=== PATIENT | female | born 1995 | race Caucasian/White ===

== ENCOUNTER → 2017-08-02 | Outpatient (CLI) | payer BC, OTHER ==
[~2017-08-02] MED LIST: BACTRIM DS 8001 TA1 PO; CLARITIN-D 12 H1 TAB PO; DIFLUCAN150 MG PO; LIDOCAINE VISC100 ML MM; NKHM; PRELONE15 MG/5 ML PO; REGLAN10 M1 PO; VICODIN ES 7501 TAB PO; ZITHROMAX Z PA250 MG PO; ZITHROMAX200 MG/51 PO
== END | disposition home or self-care (01) ==
LOC: US 01:52
DX: N92.0 Excessive and frequent menstruation with regular cycle (principal); R10.30 Lower abdominal pain, unspecified

== ENCOUNTER → 2017-11-13 | Outpatient (CLI) | payer BC, OTHER | END | disposition home or self-care (01) | LOC: NM 01:41 | DX: R11.0 Nausea (principal); R14.0 Abdominal distension (gaseous); R63.0 Anorexia; R12 Heartburn ==

== ENCOUNTER → 2018-01-10 | Day surgery (SDC) | payer OTHER ==
[~2018-01-10] VITALS: Ht 170.1 cm; Wt 65.8 kg
[~2018-01-10] MED LIST changes: +OMEPRAZOLE20 M2 PO
--- NOTE | ~2018-01-10 | O ---
[place], [place] OPERATIVE NOTE NAME: [id number] UNIT #: [id number] ROOM: DOCTOR: LOLLY CRUZ,CARLIE BIRTHDATE: [birth year] DOS: 01/10/2018 INDICATIONS: This is a 23-year-old patient who was presented with chief complaint of epigastric distress, dyspepsia, undergoing investigation. PAST MEDICAL AND SURGICAL HISTORY: Essentially noncontributory. PROCEDURE: Today's procedure part of investigation is panendoscopy plus biopsy. PREMEDICATION: Versed and Diprivan. SCOPE: Olympus forward-viewing gastroscope Q10 video. REPORT: After putting the patient in left lateral position and application of lubricant to the scope, the scope was introduced. Thereafter, under direct visualization, advanced through the length of the esophagus without difficulty. Some evidence of reflux esophagitis noticed. Gastritis was seen as we entered the gastric pouch. This is mild degree, antral biopsy was obtained for H. pylori. Duodenal bulb, second and third part within normal limits. The patient extubated, tolerated the procedure well. IMPRESSION: Mild gastritis, status post biopsy for H. pylori. Evidence of distal esophagitis secondary to reflux. PLAN AND DISCUSSION: Omeprazole 20 mg 1 daily and clinical reassessment. Continuation with Reglan 5 mg daily since it has helped with symptomatology and antireflux measures with elevation of the head of the bed 6-inch all time. Abstinence from solid food ingestion 5 hours prior to retiring. CARLIE AMBROCIO MD CM:OPRECORD:OPERATIVE NOTE [id number] CARLIE AMBROCIO MD 01/10/18 1617 interface
[2018-01-10 12:00] VITALS: BP 99/70
[2018-01-10 12:53] VITALS: BP 105/61
[2018-01-10 13:08] VITALS: BP 102/56
[2018-01-10 13:23] VITALS: BP 104/55
== END | disposition home or self-care (01) ==
LOC: SDC 12-12 12:30
DX: K21.0 Gastro-esophageal reflux disease with esophagitis (principal); K29.70 Gastritis, unspecified, without bleeding; K29.50 Unspecified chronic gastritis without bleeding; D64.9 Anemia, unspecified; Z98.890 Other specified postprocedural states

== ENCOUNTER 2018-08-05 03:42 | Emergency (ER) | payer OTHER ==
[~2018-08-05] VITALS: Ht 172.7 cm; Wt 68.0 kg
[2018-08-05] MEDS ORDERED: METOCLOPRAMIDE H5 M1 PO (03:54)
== END 2018-08-05 05:29 | disposition home or self-care (01) ==
LOC: ED 03:42
DX: S00.03XA Contusion of scalp, initial encounter (principal); H72.91 Unspecified perforation of tympanic membrane, right ear; Z79.899 Other long term (current) drug therapy; Y04.8XXA Assault by other bodily force, initial encounter; Y93.89 Activity, other specified; Y92.89 Other specified places as the place of occurrence of the external cause; Y99.8 Other external cause status

== ENCOUNTER → 2019-08-05 | Outpatient (CLI) | payer BC ==
[~2019-08-05] MED LIST changes: +METOCLOPRAMIDE H5 M1 PO
[2019-08-05 10:57] LABS: BASO % 0.5 % (0.0-1.0); EOS # 0.1 10*3/uL (0.0-0.4); EOS % 2.1 % (1.0-4.0); HEMATOCRIT 41.9 % (37.0-47.0); HEMOGLOBIN 14.2 g/dl (12.0-16.0); LYMPH # 1.4 10*3/uL (1.3-4.4); MEAN CELL VOLUME 92.9 fl (81.0-99.0); MEAN CORPUSCULAR HGB 31.5 pg (27.0-31.0); MEAN CORPUSCULAR HGB CONC 33.9 g/dl (33.0-37.0); MONO # 0.4 10*3/uL (0.1-1.0); MONO % 9.5 % (3.0-9.0); NEUT # 2.3 10*3/uL (2.3-7.9); NEUT % 53.7 % (47.0-73.0); PLATELET COUNT AUTOMATED 190 10*3/uL (130-400); RED BLOOD COUNT 4.51 10*6/uL (4.10-5.10); RED CELL DISTRI WIDTH 11.9 % (0-14.5); WHITE BLOOD COUNT 4.2 10*3/uL (4.8-10.8)
[2019-08-05 11:23] LABS: ALBUMIN 4.2 gm/dl (3.1-4.5); ALKALINE PHOSPHATASE 52 U/L (45-117); BUN 7 mg/dl (7-24); CHLORIDE 107 mmol/L (98-107); CHOLESTEROL 153 mg/dL (<200); CREATININE 0.82 mg/dL (0.55-1.02); HDL CHOLESTEROL 62 mg/dl (40-60); LDL CHOLESTEROL 76 mg/dL (9-159); POTASSIUM 3.8 mmol/L (3.5-5.1); SGOT/AST 9 IU/L (3-35); SGPT/ALT 23 U/L (12-78); SODIUM 141 mmol/L (136-145); TOTAL PROTEIN 7.5 gm/dL (6.4-8.2); TRIGLYCERIDES 75 mg/dl (<150); VLDL CHOLESTEROL 15 mg/dL (6-40)
[2019-08-05 12:05] LABS: VITAMIN D, 25-HYDROXY 17.7 ng/mL (30-100)
[2019-08-07 00:05] LABS: FACTOR VIII ACTIVITY 086264 86 % (56-140); VON WILLEBRAND FACTOR AG 66 % (50-200)
[2019-08-07 01:07] LABS: VON WILLEBRAND ACTIVITY 60 % (50-200)
== END | disposition home or self-care (01) ==
LOC: LAB 10:29
PROVIDERS: Family Medicine
DX: R53.83 Other fatigue (principal); R04.0 Epistaxis